=== PATIENT | female | born 1965 | race Caucasian/White ===

== ENCOUNTER 2025-06-14 22:41 | Emergency (ER) | payer OTHER, SELFPAY ==
--- NOTE | ~2025-06-14 | XR_ITS ---
CHEST RADIOGRAPH, PA AND LATERAL CLINICAL HISTORY: dizziness . COMPARISON: None available TECHNIQUE: PA and lateral views of the chest. FINDINGS The cardiomediastinal silhouette is unremarkable. The lungs are clear. IMPRESSION: No focal infiltrate or effusion. Reviewed, dictated and finalized at location A.
--- NOTE | ~2025-06-14 | CT_ITS ---
EXAMINATION: CT brain wo con DATE: 06/15/2025 00:56 INDICATION: Dizziness. Lightheadedness. TECHNIQUE: Computed tomography (CT) of the head was performed without intravenous contrast. The dose- length product was 681.00 mGy-cm. Automated exposure control and iterative reconstruction technique w ere employed. COMPARISON: None FINDINGS: Brain parenchymal volume is normal for age. No ventriculomegaly or midline shift. Basilar c isterns are patent. No acute infarction, hemorrhage, mass or mass effect. Paranasal sinuses and masto ids are pneumatized. IMPRESSION: 1. No acute intracranial abnormality. Reviewed, dictated and finalized at location A.
[2025-06-14 22:45] VITALS: BP 119/68; PULSE 59; RESP 18; TEMP 36.4; O2SAT 100
--- NOTE | 2025-06-14 23:30 | ECG_ITS ---
Test Date: 2025-06-14 23:37:43 Measurements Intervals [place] Rate: 63 P: 41 CA: 169 QRS: -16 QRSD: 80 T: 47 QT: 394 QTc: 405 Interpretive Statements SINUS RHYTHM DELAYED PRECORDIAL R/S TRANSITION LOW QRS VOLTAGE IN PRECORDIAL LEADS BASELINE ARTIFACT- I, II, AVR BORDERLINE ECG No previous ECG available for comparison Electronically Signed On 06-15-2025 06:08:16 CDT by Keegan Cordero D.O.
[2025-06-14 23:42] LABS: Hematocrit 37.8 % (37.0-47.0); Hemoglobin 12.7 g/dL (12.0-15.0); Immature Granulocyte Percent A 0.3 % (0-0.5); Lymphocytes Absolute Auto 2.70 K/mm3 (0.9-3.2); Mean Corpuscular HGB Conc 33.6 g/dl (32-36); Mean Corpuscular Hemoglobin 30.6 pg (26-34); Mean Corpuscular Volume 91.1 fl (80-100); Nucleated Red Blood Cells Absolute Auto 0.000 K/mm3 (0.0-0.012); Nucleated Red Blood Cells Perc 0.0 % (0.0-0.2); Platelet Count Result 238 k/mm3 (150-375); Red Blood Count 4.15 M/mm3 (4.2-5.4); White Blood Count 7.2 K/mm3 (4.5-10.0)
[2025-06-14 23:43] VITALS: BP 145/80; PULSE 65; RESP 16; TEMP 36.4; O2SAT 98
[2025-06-14 23:54] LABS: Alanine Aminotransferase 15 U/L (6-35); Albumin Level 4.4 g/dL (3.5-5.1); Alkaline Phosphatase 66 U/L (38-126); Anion Gap 7 mmol/L (4-12); Aspartate Amino Transferase 24 U/L (14-36); Bilirubin,Total 2.0 mg/dL (0.2-1.3); Blood Urea Nitrogen 17 mg/dL (7-17); Calcium 9.6 mg/dL (8.4-10.2); Carbon Dioxide 28 mmol/L (22-30); Chloride 103 mmol/L (98-107); Estimated CRCL calculation 67 ml/min; Estimated Glomerular Filt Rate > 60; Glucose 90 mg/dL (65-110); Potassium 3.6 mmol/L (3.4-5.0); Sodium 138 mmol/L (137-145); Total Protein 7.4 g/dL (6.3-8.2)
[2025-06-14 23:57] LABS: Add Urine Microscopic? YES; Appearance Urine Clear (Clear); Glucose Urine UA Negative (Negative); Leukocyte Esterase Ur Trace LEU/UL (Negative); Nitrate Urine Positive (Negative); Non Pathogenic Casts 0-2; Specific Grav Ur 1.011 (1.001-1.035)
[2025-06-15 00:03] LABS: Magnesium 2.1 mg/dL (1.6-2.3)
[2025-06-15 00:12] VITALS: BP 142/81; PULSE 62
[2025-06-15 00:14] VITALS: BP 127/78; PULSE 73
[2025-06-15 00:15] VITALS: BP 133/85; PULSE 79
--- OUTSIDE RECORDS SUMMARY | 2025-06-15 00:35 | XMS_ITS | Clinical Summary ---
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
--- OUTSIDE RECORDS SUMMARY | 2025-06-15 00:35 | XMS_ITS | Clinical Summary ---
Author Organization [facility] Address [address] [place] [address] Care Team Providers Care Manager Endoscopy Name Role Phone None, Provider MD Primary Care Provider Unavaila ble Allergies No known active allergies Medications naloxone (NARCAN) 4 MG/0.1ML nasal spray 1 spray by Nasal route as needed for Opioid reversal. may repeat every 2 to 3 minutes in alternating nostrils until medical assistance becomes available 1 each 4 08/08/20 25 Active HYDROcodone-acet aminophen (NORCO) 5-325 MG tabletIndication s:Acute Pain < 7 Day Supply Take 1 tablet by mouth every 6 (six) hours as needed for Pain. Indications: Acute Pain < 7 Day Supply 10 tablet 4 Active omeprazole (PRILOSEC) 20 MG capsule Take 1 capsule (20 mg total) by mouth daily. 3 Active probiotic (FLORAJEN3) Cap capsule Take 1 capsule by mouth daily with breakfast. Active docusate sodium (COLACE) 100 MG capsule Take 1 capsule (100 mg total) by mouth daily. Active Vitamin D-Vitamin K (VITAMIN K2-VITAMIN D3 OR) Take 1 tablet by mouth daily. Active [place]-3 Fatty Acids (OMEGA-3 PLUS) 1000 MG Cap Take 1 tablet by mouth 2 (two) times a day. Active Cobalamin Combinations (VITAMIN U36-VARKI ACID OR) Take 1 tablet by mouth daily. 5000/800 mcg Active NON FORMULARY Take 2,000 mg by mouth daily. Magnesium L threonate Active Active Problems Problem Noted Date Diagnosed Date Traumatic brain injury Overview (09/22/2024): fell april 2024 Family History Medical History Relation Comments Cancer Maternal Aunt Diabetes Maternal Grandmother Heart Disease Paternal Grandfather Diabetes Sister 1 Epilepsy Sister 2 Relation Status Comments Maternal Aunt Maternal Grandmother Paternal Grandfather Sister 1 Sister 2 Social History Tobacco Use Types Packs/Day Years Used Date Smoking Tobacco: Never Smokeless Tobacco: Never Alcohol Use Standard Drinks/Week Comments Yes 0 (1 standard drink = 0.6 oz pur e alcohol) social 0-4 Comments No Sex and Gender Information Value Date Recorded Sex Assigned at Not on file Legal Sex Female 5:49 PM CDT Gender Identity Not on file Sexual Orientation Not on file Last Filed Vital Signs Vital Sign Reading Time Taken Comments Blood Pressure 136/73 09/29/2024 3:57 PM PROCTOLOGIST Pulse 62 09/29/2024 3:57 PM PROCTOLOGIST Temperature 36.4 C (97.5 F) 09/29/2024 3:57 PM PROCTOLOGIST Respiratory Rate 18 09/29/2024 3:57 PM PROCTOLOGIST Oxygen Saturation 99% 09/29/2024 3:57 PM PROCTOLOGIST Inhaled Oxygen Concentration - - Weight 79.5 kg (175 lb 4.3 oz) 09/29/2024 11:00 AM PROCTOLOGIST Height 162.6 cm (5' 4) 09/29/2024 11:00 AM PROCTOLOGIST Body Mass Index 30.08 09/29/2024 11:00 AM PROCTOLOGIST Plan of Treatment Health Maintenance Due Date Last Done Comments Colorectal Cancer Screening Colonoscopy (10 Years) 1964 Annual Physical 1967 Hepatitis C 1982 Mammogram Screening 2004 Pneumococcal Vaccine: 50+ Years (1 of 1 - PCV) 2014 COVID-19 Vaccine (5 - season) 2024 01/21/2022, 05/06/2021, 05/05/2021, Additional history exists DTaP, Tdap and Td Vaccines (3 - Td or Tdap) 07/07/2029 07/07/2019, 09/29/2014, 05/24/2005, Additional history exists RSV Immunization or 60+ Years (1 - 1-dose 75+ series) 2039 Zoster Vaccines Completed 03/25/2023, 11/27/2022 Meningococcal B Vaccine Aged Out No l onger eligible based on patient's age to complete this topic Meningococcal Vaccine Aged Out No isreal elizabeth eligible based on patient's age to complete this topic RSV Immunizations Under 20 Months Aged Out No longer eligible based on patient's age to complete this topic Medical Devices Implanted Type Area Filbert Grower Device Identifier Shelf Expiration Date Model / Serial / Lot Viaflow Placental Tissure Matirx Implanted:Qty: 1 on 09/29/2024 by Darrel Bonilla DPM at [facility] Tissue Bilateral : [employer] 04/17/2029 [id number] / [id number] / Insurance [facility] Care Teams Manager Endoscopy Relationship Specialty Start Date End Date None, Provider, PCP - General 03/10/21
--- OUTSIDE RECORDS SUMMARY | 2025-06-15 00:35 | XMS_ITS | Encounter Summary ---
Author Organization [facility] Health Address [address] [place] [address] Care Team Providers Care Grey Roll Worker Name Role Phone Unavailable Primary Care Provider Unavailabl e Prior Encounters Date Type Department Care Team Description 11/23/2019 Converted CPS Chart Documents [facility] [address] [place] [phone] <No scans attached> 11/23/2019 Converted 13x Documents [facility] [address] [place] [phone] <No scans attached> Plan of Treatment Not on file Procedures Procedure Name Priority Date/Time Associated Diagnosis Comments ADJUST PARTIAL DENTURE - MANDIBULAR Routine 05/03/2021 2:00 AM CDT NC X-RAY Routine 05/03/2021 2:00 AM CDT ADJUST PARTIAL DENTURE - MANDIBULAR Routine 04/24/2021 2:00 AM CDT OFFICE VISIT FOR OBSERVATION (DURING REGULARLY SCHEDULED HOURS) - NO OTHER SERVICES PERFORMED Routine 04/24/2021 2:00 AM CDT ADJUST PARTIAL DENTURE - MANDIBULAR Routine 04/17/2021 2:00 AM CDT ADJUST PARTIAL DENTURE - MAXILLARY Routine 04/17/2021 2:00 AM CDT ADJUST PARTIAL DENTURE - MANDIBULAR Routine 02/27/2021 2:00 AM CDT ADJUST PARTIAL DENTURE - MANDIBULAR Routine 01/16/2021 2:00 AM CDT CANCELLED APPOINTMENT Routine 12/11/2020 2:00 AM LITIGATION ATTORNEY ASSOCIATE 18,19,30 PLD METAL/RESIN PREMIUM Routine 11/21/2020 2:00 AM LITIGATION ATTORNEY ASSOCIATE 3,12,14,15 PUD METAL/RESIN PREMIUM Routine 11/21/2020 2:00 AM LITIGATION ATTORNEY ASSOCIATE 18,19,30 PLD METAL/RESIN PREMIUM Routine 11/21/2020 2:00 AM LITIGATION ATTORNEY ASSOCIATE 3,12,14,15 PUD METAL/RESIN PREMIUM Routine 11/21/2020 2:00 AM LITIGATION ATTORNEY ASSOCIATE 32 EXTRACTION, ERUPTED TOOTH OR EXPOSED ROOT (ELEVATION AND/OR FORCEPS REMOVAL) Routine 11/21/2020 2:00 AM LITIGATION ATTORNEY ASSOCIATE 30 EXTRACTION, ERUPTED TOOTH OR EXPOSED ROOT (ELEVATION AND/OR FORCEPS REMOVAL) Routine 11/21/2020 2:00 AM LITIGATION ATTORNEY ASSOCIATE 19 EXTRACTION, ERUPTED TOOTH OR EXPOSED ROOT (ELEVATION AND/OR FORCEPS REMOVAL) Routine 11/21/2020 2:00 AM LITIGATION ATTORNEY ASSOCIATE 18 EXTRACTION, ERUPTED TOOTH OR EXPOSED ROOT (ELEVATION AND/OR FORCEPS REMOVAL) Routine 11/21/2020 2:00 AM LITIGATION ATTORNEY ASSOCIATE 17 EXTRACTION, ERUPTED TOOTH OR EXPOSED ROOT (ELEVATION AND/OR FORCEPS REMOVAL) Routine 11/21/2020 2:00 AM LITIGATION ATTORNEY ASSOCIATE 16 EXTRACTION, ERUPTED TOOTH OR EXPOSED ROOT (ELEVATION AND/OR FORCEPS REMOVAL) Routine 11/21/2020 2:00 AM LITIGATION ATTORNEY ASSOCIATE 15 EXTRACTION, ERUPTED TOOTH OR EXPOSED ROOT (ELEVATION AND/OR FORCEPS REMOVAL) Routine 11/21/2020 2:00 AM LITIGATION ATTORNEY ASSOCIATE 14 EXTRACTION, ERUPTED TOOTH OR EXPOSED ROOT (ELEVATION AND/OR FORCEPS REMOVAL) Routine 11/21/2020 2:00 AM LITIGATION ATTORNEY ASSOCIATE 12 EXTRACTION, ERUPTED TOOTH OR EXPOSED ROOT (ELEVATION AND/OR FORCEPS REMOVAL) Routine 11/21/2020 2:00 AM LITIGATION ATTORNEY ASSOCIATE 3 EXTRACTION, ERUPTED TOOTH OR EXPOSED ROOT (ELEVATION AND/OR FORCEPS REMOVAL) Routine 11/21/2020 2:00 AM LITIGATION ATTORNEY ASSOCIATE 1 EXTRACTION, ERUPTED TOOTH OR EXPOSED ROOT (ELEVATION AND/OR FORCEPS REMOVAL) Routine 11/21/2020 2:00 AM LITIGATION ATTORNEY ASSOCIATE 31 EXTRACTION, ERUPTED TOOTH OR EXPOSED ROOT (ELEVATION AND/OR FORCEPS REMOVAL) Routine 11/21/2020 2:00 AM LITIGATION ATTORNEY ASSOCIATE 5 EXTRACTION, ERUPTED TOOTH OR EXPOSED ROOT (ELEVATION AND/OR FORCEPS REMOVAL) Routine 11/21/2020 2:00 AM LITIGATION ATTORNEY ASSOCIATE COMPREHENSIVE ORAL EVALUATION - NEW OR ESTABLISHED PATIENT Routine 11/21/2020 2:00 AM LITIGATION ATTORNEY ASSOCIATE [place] CT CAPTURE AND INTERPRETATION WITH FIELD OF VIEW OF BOTH JAWS; WITH OR WITHOUT CRANIUM Routine 11/21/2020 2:00 AM LITIGATION ATTORNEY ASSOCIATE BITEWINGS - TWO RADIOGRAPHIC IMAGES Routine 11/21/2020 2:00 AM LITIGATION ATTORNEY ASSOCIATE SINGLE X-RAY Routine 11/21/2020 2:00 AM LITIGATION ATTORNEY ASSOCIATE Visit Diagnoses Not on file
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
--- OUTSIDE RECORDS SUMMARY | 2025-06-15 00:35 | XMS_ITS | Clinical Summary ---
Author Organization [facility] Address [address] [place] [address] Care Team Providers Care Software Tester Name Role Phone Delta Damon MD Primary Care Provider Source Comments [facility],non-owned Affiliates and Associated Physician Practices is amultiple site organization consisting of ambulatory clinics and hospital sitesin [place], [place], [place] and [place]. This disclosure is being madepursuant to the Care Everywhere program and may not contain all information available regarding this patient. Last updated 18.[facility] Allergies No known active allergies Medications * Be aware that medications may not be up to date on this document. Alwaysverify current medications with the patient. metroNIDAZOLE vaginal (VANDAZOLE) 0.75 % vaginal gel 05/18/2019 Active Active Problems No known active problems Social History Tobacco Use Types Packs/Day Years Used Date Smoking Tobacco: Never Smokeless Tobacco: Never Comments No Sex and Gender Information Value Date Recorded Sex Assigned at Not on file Legal Sex Female 9:35 AM CDT Gender Identity Female 04/13/2019 3:11 PM CDT Sexual Orientation Not on file Last Filed Vital Signs Vital Sign Reading Time Taken Comments Blood Pressure 133/69 05/28/2019 4:09 PM CDT Pulse 91 05/28/2019 4:09 PM CDT Temperature 37.2 C (98.9 F) 05/28/2019 4:09 PM CDT Respiratory Rate 16 05/28/2019 4:09 PM CDT Oxygen Saturation 100% 05/28/2019 4:09 PM CDT Inhaled Oxygen Concentration - - Weight 77.1 kg (170 lb) 05/28/2019 4:09 PM CDT Height 162.6 cm (5' 4) 05/28/2019 4:09 PM CDT Body Mass Index 29.18 05/28/2019 4:09 PM CDT Plan of Treatment Health Maintenance Due Date Last Done Comments COLOGUARD (AGES 45-75) - COL ON CA SCREENING 1964 COLON MONITORING 1964 COLONOSCOPY - COLON CA SCREENING 1964 CT COLONOGRAPHY - COLON CA SCREENING 1964 Colorectal Cancer Screening 1964 FIT - COLON CA SCREENING 1964 FLEX SIG - COLON CA SCREENING 1964 LIPID TESTING 1964 MAMMOGRAM 1964 HIV SCREENING 1979 HEPATITIS C SCREENING 07/14/1982 DTAP/TDAP/TD VACCINES (1 - Tdap) 1983 PAP SMEAR 1985 PNEUMOCOCCAL VACCINE 50+ (1 of 1 - PCV) 2014 ZOSTER VACCINE (1 of 2) 2014 COVID-19 VACCINE (3 - 2023-2 5 season) 2024 05/06/2021, 04/15/2021 DEPRESSION SCREENING 11/04/2024 INFLUENZA VACCINE (#1) 2025 Respiratory Syncytial Virus (RSV) Vaccine Pt: or over 60 yrs (1 - 1-dose 75+ series) 2039 HEPATITIS B VACCINE Aged Out No longe r eligible based on patient's age to complete this topic HIB VACCINE Aged Out No longer eligi ble based on patient's age to complete this topic HPV VACCINE Aged Out No longer eligi ble based on patient's age to complete this topic MENINGOCOCCAL (Group B) VACCINE SHARED DECISION-MAKING Aged Out No longer eligible based on patient's age to complete this topic MENINGOCOCCAL GROUPS A/C/Y/W VACCINE Aged Out No longer eligible b ased on patient's age to complete this topic Insurance Care Teams Software Tester Relationship Specialty Start Date End Date Delta Damon MD [address] [place] [phone] PCP - General 10/06/19
[2025-06-15 00:41] VITALS: BP 124/69; PULSE 62; RESP 16; O2SAT 100
[2025-06-15] MEDS: SODIUM CHLORIDE 0.9% IV 1,000 ML 999 ML IV CONT (00:41)
[2025-06-15] MEDS: MECLIZINE HCL 25 MG TABLET PO (01:03)
--- NOTE | 2025-06-15 02:00 | ED.DIZZY ---
HPI - Dizziness General Chief Complaint: Dizziness Stated Complaint: Dizziness Time Seen by Provider: 06/14/25 23:42 Source: patient Mode of arrival: ambulatory Limitations: no limitations History of Present Illness HPI Narrative: Patient is a 59-year-old female who presents the ED with report of dizziness/lightheadedness. Patient reports she has been having intermittent dizziness/lightheadedness since last Saturday. Reports it is worse with certain movements, tilting head upright, bending over, looking left to right, standing upright. She saw her PCP for this last week and was told she was dehydrated and orthostatic. She has been trying to drink plenty of fluids over the weekend, but denied improvement. Denies syncope, LOC. Denies focal weakness or numbness, headache, vision changes, chest pain, difficulty breathing, nausea, vomiting, slurred speech, confusion. Related Data Allergies Allergy/AdvReac Type Severity Reaction Status Date / Time No Known Allergies Allergy Verified 06/14/25 22:42 Review of Systems Review of Systems: All systems reviewed & are unremarkable except as noted in HPI. All systems reviewed & are unremarkable except as noted in HPI and below Exam Narrative: GENERAL: Well appearing, well-nourished, non-toxic, in no acute distress. HEAD: Normocephalic, atraumatic. EYES: PERRL/EOMI, conjunctivae clear bilaterally. No nystagmus. NECK: Supple. No meningeal signs. RESPIRATORY: Airway patent, respirations nonlabored. Clear to auscultation bilaterally, no rales, rhonchi, wheezing. CARDIOVASCULAR: Regular rate and rhythm without murmurs, rubs, or gallops. Peripheral pulses 2+ and equal bilaterally. MUSCULOSKELETAL: Moves all extremities. No gross deformities. SKIN: Warm, dry, normal color. No rashes. NEURO: A&O X3. Speech clear. Follows commands. CN II-XII grossly intact. Sensation grossly intact. Steady gait. No ataxic movements. Strength 5/5 in upper and lower extremities bilaterally. No pronator drift. Equal grocery store manager strength bilaterally. PSYCHIATRIC: Appropriate mood and affect. Normal interaction. Course Vital Signs Vital signs: Vital Signs Temperature 97.6 F 06/14/25 22:45 Pulse Rate 59 L 06/14/25 22:45 Respiratory Rate 18 06/14/25 22:45 Blood Pressure 119/68 06/14/25 22:45 Pulse Oximetry 100 06/14/25 22:45 Oxygen Delivery Room Air 06/14/25 22:45 Temperature 97.8 F 06/15/25 02:33 Pulse Rate 73 06/15/25 02:33 Respiratory Rate 18 06/15/25 02:33 Blood Pressure 132/72 06/15/25 02:33 Pulse Oximetry 99 06/15/25 02:33 Oxygen Delivery Room Air 06/14/25 22:45 MDM - Dizziness MDM Narrative Medical decision making narrative: Patient presented to ED with several day history of intermittent dizziness/lightheadedness, worse with certain positions. Vital signs are stable upon arrival. Patient was slightly orthostatic with drop in blood pressure. Fluids were initiated. She is neurologically intact. No focal deficits appreciated on exam. There is no diplopia, dysarthria, or dysphagia. Otherwise normal neurologic examinations. CT brain was without acute findings. Symptoms have been ongoing for several days. Would expect to see changes on CT imaging if this were neurologic in nature. EKG with sinus rhythm, no concerning ST changes or arrhythmia. Laboratory studies without leukocytosis or anemia. Stable electrolytes. Normal magnesium. UA with positive nitrates, but no wbc's seen. Sent for culture. Patient denies urinary complaints. Chest x-ray is clear. Patient given fluids and meclizine in the ED. On re-evaluation she does report that symptoms have improved. She has been ambulatory to and from the bathroom several times without issue. Gait is stable and there are no cerebral or cerebellar deficits on exam. Remains neurologically intact. Feel symptoms most likely related to BPPV, peripheral dizziness. Feel patient is safe for discharge home with supportive therapy. Risk factors for central causes of vertigo and reasons to return to the ED reviewed, including persistent symptoms, focal weakness, slurred speech, confusion, or vision changes. Patient felt to be a reasonable candidate for continued outpatient management and risks are felt to outweigh benefits for further imaging studies at this time. Advised patient to stay well hydrated. Recommended close follow-up with PCP for continued evaluation. Given strict return precautions. She agrees with plan, feels comfortable going home. Discharged in stable condition. Medical Records Attestation: I reviewed the patient's medical records. Lab Data Attestation: I reviewed the patient's lab results. 06/14/25 23:36 06/14/25 23:36 Labs: Lab Results 06/14/25 06/14/25 Range/Units 23:36 23:46 WBC 7.2 (4.5-10.0) K/mm3 RBC 4.15 L (4.2-5.4) M/mm3 Hgb 12.7 (12.0-15.0) g/dL Hct 37.8 (37.0-47.0) % MCV 91.1 (80-100) fl MCH 30.6 (26-34) pg MCHC 33.6 (32-36) g/dl RDW 12.6 (11.5-14.5) % Plt Count 238 (150-375) k/mm3 MPV 10.3 (7.4-10.4) fl Immature Gran % (Auto) 0.3 (0-0.5) % Neut % (Auto) 50.2 (45.5-73.1) % Lymph % (Auto) 37.4 (18.3-44.2) % [place] % (Auto) 9.3 H (2.6-8.5) % Eos % (Auto) 2.4 (0-4.4) % Baso % (Auto) 0.4 (0.2-1.2) % Lymph # (Auto) 2.70 (0.9-3.2) K/mm3 [place] # (Auto) 0.7 H (0.1-0.6) K/mm3 Eos # (Auto) 0.2 (0-0.3) K/mm3 Baso # (Auto) 0.0 (0.0-0.1) K/mm3 Abs Immat Gran (auto) 0.02 (0.00-0.031) K/mm3 Absolute Neuts (auto) 3.6 (1.3-6.7) K/mm3 Absolute Nucleated RBC 0.000 (0.0-0.012) K/mm3 Nucleated RBC % 0.0 (0.0-0.2) % Sodium 138 (137-145) mmol/L Potassium 3.6 (3.4-5.0) mmol/L Chloride 103 (98-107) mmol/L Carbon Dioxide 28 (22-30) mmol/L Anion Gap 7 (4-12) mmol/L BUN 17 (7-17) mg/dL Creatinine 0.77 (0.7-1.0) mg/dL Estim Creat Clear Calc 67 ml/min Estimated GFR > 60 (59 - ) Glucose 90 (65-110) mg/dL Calcium 9.6 (8.4-10.2) mg/dL Magnesium 2.1 (1.6-2.3) mg/dL Total Bilirubin 2.0 H (0.2-1.3) mg/dL AST 24 (14-36) U/L ALT 15 (6-35) U/L Alkaline Phosphatase 66 (38-126) U/L Total Protein 7.4 (6.3-8.2) g/dL Albumin 4.4 (3.5-5.1) g/dL Urine Color Yellow (Yellow) Urine Appearance Clear (Clear) Urine pH 5.5 (5.0-9.0) Ur Specific [place] 1.011 (1.001-1.035) Urine Protein Negative (Negative) mg/dL Urine Glucose (UA) Negative (Negative) mg/dL Urine Ketones Negative (Negative) mg/dL Ur Blood (Man) Negative (Negative) Urine Nitrate Positive H (Negative) Urine Bilirubin Negative (Negative) Urine Urobilinogen 0.2 (<2.0) mg/dL Leukocyte Esterase Rfl Trace H (Negative) JOSE/UL Urine RBC 0-2 (0-2) /hpf Urine WBC 0-5 (0-3) /hpf Ur Squamous Epith Cells None seen (Few) /hpf Urine Bacteria 4+ H /hpf Urine Casts 0-2 Imaging Data Attestation: I personally reviewed and interpreted this imaging study as follows: Radiologist's impression: ITS Impressions Chest X-Ray 06/15/25 00:24 IMPRESSION: No focal infiltrate or effusion. STAT RAD CT brain: No acute intracranial hemorrhage. No midline shift or mass effect. The territory herman-white matter differentiation is maintained throughout. The ventricles and sulci are commensurate with age. Discharge Plan Discharge Clinical Impression: Dizziness, Positional lightheadedness, Orthostatic hypotension Patient Disposition: Home Condition: Stable Instructions: Antibiotic Form, Benign Paroxysmal Positional Vertigo (ED), Lightheadedness (ED), Dizziness (ED) Additional Instructions: Utilize meclizine, Valium, scopolamine patch as needed for vertigo. Use caution with Valium. Recommend taking this at night as it may cause sedation. Do not drive, operate heavy machinery, drink alcohol while on valium as this may cause further sedation. Stay well hydrated. Follow-up closely with your primary care doctor for further evaluation. Return to ED for worsening or severe dizziness/lightheadedness, passing out, unable to keep down food or drink, chest pain, difficulty breathing, numbness or weakness of arm or leg, vision changes, severe headache, or any other symptoms of concern. Patient Language: Lithuanian Prescriptions: New meclizine 25 mg tablet 25 mg PO TID PRN (Reason: diziness) Qty: 15 0RF diazepam [Valium] 2 mg tablet 2 mg PO HS PRN (Reason: dizziness or vertigo) Qty: 5 0RF scopolamine base 1 mg over 3 days patch 3 day 1 patch transdermal Q3D PRN (Reason: dizziness or vertigo) Qty: 4 0RF Follow-up/Referrals: UNKNOWN,DOCTOR [Primary Care Provider] - Time of Disposition: 02:20
[2025-06-15 02:33] VITALS: BP 132/72; PULSE 73; RESP 18; TEMP 36.6; O2SAT 99
== END 2025-06-15 02:36 | disposition home or self-care (01) ==
PROVIDERS: Student in an Organized Health Care Education/Training Program; Emergency Provider Physician Assistant
DX: I95.1 Orthostatic hypotension (principal); R42 Dizziness and giddiness; R82.998 Other abnormal findings in urine
CPT/HCPCS: 36415; 70450; 71046; 80053; 81001; 83735; 85025; 87086; 93005; 96360; 99284; A9270; J7030

== ENCOUNTER 2025-07-22 18:36 | Emergency (ER) | payer OTHER, SELFPAY ==
--- NOTE | ~2025-07-22 | CT_ITS ---
CT HEAD NON-CONTRAST Clinical History: dizziness Comparison: 06/15/2025 Technique: Unenhanced axial images skull base to vertex Coronal, sagittal reformats CT images acquired with automatic exposure control for dose reduction DLP: 681 mGy-cm Findings: Sulci, ventricles: Unremarkable. No intracerebral hemorrhage. No evidence acute territorial infarct. No mass effect, midline shift. Bony calvarium intact. Visualized paranasal sinuses: Clear. Mastoid air cells: Clear. IMPRESSION: 1. No acute intracranial findings. Reviewed, dictated and finalized at location R.
[2025-07-22 18:38] VITALS: BP 133/81; PULSE 83; RESP 18; TEMP 36.7; O2SAT 99
--- OUTSIDE RECORDS SUMMARY | 2025-07-22 18:38 | XMS_ITS | Clinical Summary ---
Author Organization [facility] Address [address] [place] [address] Care Team Providers Care Cloth Printer Name Role Phone JanetDiaz [facility] Primary Care Provider [phone] Allergies No known active allergies Medications esomeprazole [...] (01/14/2023): Added automatically from request for surgery [id number] Tear of right rotator cuff 09/23/2019 Overview (09/23/2019): Added automatically from request for surgery [id number] Vaginal atrophy 06/26/2019 Incomplete defecation 06/08/2019 Pelvic floor dysfunction in female 06/08/2019 Urinary incontinence 06/08/2019 Overview (06/08/2019): Added automatically from request for surgery [id number] Arthralgia of shoulder 07/20/2015 Resolved Problems Problem Noted Date Diagnosed Date Resolved Date Postoperative state 08/05/2019 02/19/20 23 Prolapse of vaginal vault after hysterectomy 9 02/18/2023 Cystocele, midline 06/08/2019 3 Encounters Date Type Department Care Team Description 04/30/2025 1:45 PM CDT Office Visit [facility] Medicine Orthopaedic Surgery [address] [place] [address] Medical Office Building [address] [place] [phone] Aracely Subramanian NP Aftercare following left hip joint replacement surgery (Primary Dx); Left hip pain; Greater trochanteric bursitis of left hip 04/30/2025 1:22 PM CDT - 04/30/2025 11:59 PM CDT Hospital Encounter [id number] [address] [place] [address] [address] [place] [id number] Aftercare following left hip joint replacement surgery [...] Grandmother Cancer Mother Diabetes Mother 50s y, [place] Paternal Grandfather Heart attack Paternal Grandfather Seizures [...] on file Legal Sex Female 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 Gender Identity Not on file Sexual Orientation Not on file 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 Not on file Not [...] of 2) 2014 Covid-19 Vaccine (3 - 2024-2 6 season) 2025 05/06/2021, 04/15/2021 Influenza Vaccine (#1) 2025 DTaP/Tdap/Td Vaccine (2 - Td or Tdap) 07/07/2029 07/07/2019 Pneumococcal vaccine <65 Aged Out No longer eligible based on patient's age to complete this topic Medical Devices Implanted Type Area Outside Plant Technician Device Identifier Shelf Expiration Date Model / Serial / Lot Key Cybersecurity [id number] Upsylon 35.4cm Elongation Profile Lightweight Large Pore Low - Sna - [id number] Implanted:Qty: 1 on 07/22/2019 by Scott Evans MD at [facility] Mesh N/A: Pelvis Crane [employer]ormix Sam 05/03/2022 [id number] / NA / [id number] [employer] Insert Trident 0deg 36mm 723-00-36d - [id number] Implanted:Qty: 1 on 02/07/2023 by Morgan Vaughn MD at [facility] Left: Hip [employer] [id number] 12/16/2027 723-00-36 D / / [id number] Description:Implant pause pe rformed [employer] Shell Acetabular Trident Ii Tritanium D Od50mm Hip 9 Hole Sterile 709-04-50d - [id number] Implanted:Qty: 1 on 02/07/2023 by Morgan Vaughn MD at [facility] Left: Hip [employer] [id number] 01/01/2028 709-04-50 D / / [id number] Description:Implant pause pe rformed [employer] Screw Bone Trident Ii L25mm Od6.5mm Low Profile Hexagonal Sterile 5886-8659 - [id number] Implanted:Qty: 1 on 02/07/2023 by Morgan Vaughn MD at [facility] Left: Hip [employer] [id number] 12/26/2027 2044-4681 / / UACA Description:Implant pause pe rformed [employer] Screw Bone Trident Ii L25mm Od6.5mm Low Profile Hexagonal Sterile 5162-7643 - [id number] Implanted:Qty: 1 on 02/07/2023 by Morgan Vaughn MD at [facility] Left: Hip [employer] [id number] 12/26/2027 2904-4071 / / UACA Description:Implant pause pe rformed [employer] Stem Insignia Hip Size 4 Standard 1537-8987 - [id number] Implanted:Qty: 1 on 02/07/2023 by Morgan Vaughn MD at [facility] Left: Hip [employer] [id number] 05/15/2027 6026-3135 / / [id number] Description:Implant pause pe rformed [employer] V40 36mm Anatomic Hip -2.5mm Offset Taper Head Femoral Biolox 6570-0-436 - [id number] Implanted:Qty: 1 on 02/07/2023 by Morgan Vaughn MD at [facility] Left: Hip [employer] [id number] 06/12/2027 6570-0-43 [id number] Description:Implant pause pe rformed Procedures Procedure Name Priority Date/Time Associated Diagnosis Comments GA ARTHROCENTESIS ASPIR&/INJ MAJOR JT/BURSA W/O US Routine 04/30/2025 1:45 PM CDT Greater trochanteric bursitis of left hip XR HIP LEFT W PELVIS 2 OR 3 VIEWS Schedule Routine, Read Routine (OP Routine) 04/30/2025 1:36 PM CDT Aftercare following left hip joint replacement surgery from Last 3 Months Results * GA ARTHROCENTESIS ASPIR&/INJ MAJOR JT/BURSA W/O US (04/30/2025 [...] R esult from Last 3 Months Insurance [facility] Advance Directives For more information, please contact: [phone] * Full Code (Latest Code Status on File) Date Activated Date Inactivated Comments 02/07/2023 10:23 AM 02/08/2023 2:44 PM * Full Code Date Activated Date Inactivated Comments 07/22/2019 8:32 PM 07/23/2019 6:44 PM Care Teams Cloth Printer Relationship Specialty Start Date End Date [facility] [address] [place] [address] PCP - General 06/25/24
--- OUTSIDE RECORDS SUMMARY | 2025-07-22 18:38 | XMS_ITS | Clinical Summary ---
Author Organization [facility] Address [address] [place] [address] Care Team Providers Care Stove Mounter Name Role Phone None, Provider MD Primary [...] Take 1 tablet by mouth daily. Active [place]-3 Fatty Acids (OMEGA-3 PLUS) 1000 MG Cap Take 1 tablet by mouth 2 (two) times a day. Active Cobalamin Combinations (VITAMIN B00-FWDFR ACID OR) Take 1 tablet by mouth [...] Comments Blood Pressure 136/73 09/29/2024 3:57 PM MANUFACTURING ENGINEER MACHINING Pulse 62 09/29/2024 3:57 PM MANUFACTURING ENGINEER MACHINING Temperature 36.4 C (97.5 F) 09/29/2024 3:57 PM MANUFACTURING ENGINEER MACHINING Respiratory Rate 18 09/29/2024 3:57 PM MANUFACTURING ENGINEER MACHINING Oxygen Saturation 99% 09/29/2024 3:57 PM MANUFACTURING ENGINEER MACHINING Inhaled Oxygen Concentration - - Weight 79.5 kg (175 lb 4.3 oz) 09/29/2024 11:00 AM MANUFACTURING ENGINEER MACHINING Height 162.6 cm (5' 4) 09/29/2024 11:00 AM MANUFACTURING ENGINEER MACHINING Body Mass Index 30.08 09/29/2024 11:00 AM MANUFACTURING ENGINEER MACHINING Plan of Treatment Health Maintenance Due Date Last Done Comments Colorectal Cancer Screening Colonoscopy (10 Years) 1964 Annual Physical 1967 Hepatitis C 1982 Mammogram Screening 2004 Pneumococcal Vaccine: 50+ Years (1 of 1 - PCV) 2014 COVID-19 Vaccine (5 - 2024- season) 2025 01/21/2022, 05/06/2021, 05/05/2021, Additional history exists DTaP, [...] this topic Medical Devices Implanted Type Area Manufacturers Service Representative Device Identifier Shelf Expiration Date Model / Serial / Lot Viaflow Placental Tissure Matirx Implanted:Qty: 1 on 09/29/2024 by Darrel Bonilla DPM at [facility] Tissue Bilateral : Toe Evi 04/17/2029 [id number] / [id number] / Insurance [facility] Care Teams Stove Mounter Relationship Specialty Start Date End Date None, Provider, PCP - General 03/10/21
--- OUTSIDE RECORDS SUMMARY | 2025-07-22 18:38 | XMS_ITS | Clinical Summary ---
Author Organization [facility] Health Address [address] [place] [address] Care Team Providers Care Clam Bed Laborer Name Role Phone Unavailable Primary Care Provider [...]
--- OUTSIDE RECORDS SUMMARY | 2025-07-22 18:38 | XMS_ITS | Clinical Summary ---
Author Organization [facility] Address [address] [place] [address] Care Team Providers Care Type Photography Supervisor Name Role Phone Delta Damon MD Primary Care Provider [phone] Source Comments [facility],non-owned Affiliates and Associated Physician Practices is amultiple site organization consisting of ambulatory clinics and hospital sitesin [place], [place] and [place]. This disclosure is being madepursuant to the Care Everywhere program and may not contain all information available regarding this patient. Last updated 18.[facility] Allergies No known active allergies Medications * [...] 07/14/1982 DTAP/TDAP/TD VACCINES (1 - Tdap) 1983 PNEUMOCOCCAL VACCINE 50+ (1 of 1 - PCV) 2014 ZOSTER VACCINE (1 of 2) 2014 DEPRESSION SCREENING 11/04/2024 COVID-19 VACCINE (3 - 2024-2 6 season) 2025 05/06/2021, 04/15/2021 INFLUENZA VACCINE (#1) 2025 Respiratory Syncytial Virus [...] to complete this topic Insurance Care Teams Type Photography Supervisor Relationship Specialty Start Date End Date Delta Damon MD [address] [place] [id number] PCP - General 10/06/19
--- OUTSIDE RECORDS SUMMARY | 2025-07-22 18:38 | XMS_ITS | Encounter Summary ---
Author Organization [facility] Health Address [address] [place] [address] Care Team Providers Care Metal Control Worker Name Role Phone Unavailable Primary Care Provider Unavailabl e Prior Encounters Date Type Department Care Team Description 11/23/2019 Converted CPS Chart Documents [facility] [address] [place] [phone] <No scans attached> 11/23/2019 Converted 13x Documents [facility] [address] [place] [phone] <No scans attached> Plan of Treatment Not [...] CDT CANCELLED APPOINTMENT Routine 12/11/2020 2:00 AM HEAD OF DIGITAL ADVERTISING & INTEGRATION 18,19,30 PLD METAL/RESIN PREMIUM Routine 11/21/2020 2:00 AM HEAD OF DIGITAL ADVERTISING & INTEGRATION 3,12,14,15 PUD METAL/RESIN PREMIUM Routine 11/21/2020 2:00 AM HEAD OF DIGITAL ADVERTISING & INTEGRATION 18,19,30 PLD METAL/RESIN PREMIUM Routine 11/21/2020 2:00 AM HEAD OF DIGITAL ADVERTISING & INTEGRATION 3,12,14,15 PUD METAL/RESIN PREMIUM Routine 11/21/2020 2:00 AM HEAD OF DIGITAL ADVERTISING & INTEGRATION 32 EXTRACTION, ERUPTED TOOTH OR EXPOSED ROOT (ELEVATION AND/OR FORCEPS REMOVAL) Routine 11/21/2020 2:00 AM HEAD OF DIGITAL ADVERTISING & INTEGRATION 30 EXTRACTION, ERUPTED TOOTH OR EXPOSED ROOT (ELEVATION AND/OR FORCEPS REMOVAL) Routine 11/21/2020 2:00 AM HEAD OF DIGITAL ADVERTISING & INTEGRATION 19 EXTRACTION, ERUPTED TOOTH OR EXPOSED ROOT (ELEVATION AND/OR FORCEPS REMOVAL) Routine 11/21/2020 2:00 AM HEAD OF DIGITAL ADVERTISING & INTEGRATION 18 EXTRACTION, ERUPTED TOOTH OR EXPOSED ROOT (ELEVATION AND/OR FORCEPS REMOVAL) Routine 11/21/2020 2:00 AM HEAD OF DIGITAL ADVERTISING & INTEGRATION 17 EXTRACTION, ERUPTED TOOTH OR EXPOSED ROOT (ELEVATION AND/OR FORCEPS REMOVAL) Routine 11/21/2020 2:00 AM HEAD OF DIGITAL ADVERTISING & INTEGRATION 16 EXTRACTION, ERUPTED TOOTH OR EXPOSED ROOT (ELEVATION AND/OR FORCEPS REMOVAL) Routine 11/21/2020 2:00 AM HEAD OF DIGITAL ADVERTISING & INTEGRATION 15 EXTRACTION, ERUPTED TOOTH OR EXPOSED ROOT (ELEVATION AND/OR FORCEPS REMOVAL) Routine 11/21/2020 2:00 AM HEAD OF DIGITAL ADVERTISING & INTEGRATION 14 EXTRACTION, ERUPTED TOOTH OR EXPOSED ROOT (ELEVATION AND/OR FORCEPS REMOVAL) Routine 11/21/2020 2:00 AM HEAD OF DIGITAL ADVERTISING & INTEGRATION 12 EXTRACTION, ERUPTED TOOTH OR EXPOSED ROOT (ELEVATION AND/OR FORCEPS REMOVAL) Routine 11/21/2020 2:00 AM HEAD OF DIGITAL ADVERTISING & INTEGRATION 3 EXTRACTION, ERUPTED TOOTH OR EXPOSED ROOT (ELEVATION AND/OR FORCEPS REMOVAL) Routine 11/21/2020 2:00 AM HEAD OF DIGITAL ADVERTISING & INTEGRATION 1 EXTRACTION, ERUPTED TOOTH OR EXPOSED ROOT (ELEVATION AND/OR FORCEPS REMOVAL) Routine 11/21/2020 2:00 AM HEAD OF DIGITAL ADVERTISING & INTEGRATION 31 EXTRACTION, ERUPTED TOOTH OR EXPOSED ROOT (ELEVATION AND/OR FORCEPS REMOVAL) Routine 11/21/2020 2:00 AM HEAD OF DIGITAL ADVERTISING & INTEGRATION 5 EXTRACTION, ERUPTED TOOTH OR EXPOSED ROOT (ELEVATION AND/OR FORCEPS REMOVAL) Routine 11/21/2020 2:00 AM HEAD OF DIGITAL ADVERTISING & INTEGRATION COMPREHENSIVE ORAL EVALUATION - NEW OR ESTABLISHED PATIENT Routine 11/21/2020 2:00 AM HEAD OF DIGITAL ADVERTISING & INTEGRATION [facility] CT CAPTURE AND INTERPRETATION WITH FIELD OF VIEW OF BOTH JAWS; WITH OR WITHOUT CRANIUM Routine 11/21/2020 2:00 AM HEAD OF DIGITAL ADVERTISING & INTEGRATION BITEWINGS - TWO RADIOGRAPHIC IMAGES Routine 11/21/2020 2:00 AM HEAD OF DIGITAL ADVERTISING & INTEGRATION SINGLE X-RAY Routine 11/21/2020 2:00 AM HEAD OF DIGITAL ADVERTISING & INTEGRATION Visit Diagnoses Not on file
--- NOTE | 2025-07-22 18:59 | ED.DIZZY ---
HPI - Dizziness General Chief Complaint: Dizziness <Shivani Cadet APRN - Last Filed: 07/22/25 19:02> Stated Complaint: light headed, nausea, vertigo <Shivani Cadet APRN - Last Filed: 07/22/25 19:02> Time Seen by Provider: 07/22/25 19:00 <Shivani Cadet APRN - Last Filed: 07/22/25 19:02> Focused HPI: Patient is a 60-year-old female who presents to the ER with vertigo. She reports she was diagnosed approximately 1 month ago and her symptoms have improved but today they have worsened again. Patient endorses significant dizziness when she opens her eyes or moves positions. She also endorses nausea and vomiting. Patient denies any numbness and tingling in her extremities, recent fevers, ear pain, or congestion. GENERAL: Ill-appearing, well-nourished, and in mild distress d/t vertigo. HEAD: Normocephalic, atraumatic. CHEST: Clear to auscultation. ?No respiratory distress. HEART: Regular rate and rhythm.? NEURO: ?Alert and oriented x3. Patient screened in triage and initial orders placed.? ?Additional care and disposition to be based upon?diagnostic testing and treatment. <Shivani Cadet APRN - Last Filed: 07/22/25 19:02> Source: patient <Greyson Breen MD - Last Filed: 07/22/25 21:36> Mode of arrival: ambulatory <Greyson Breen MD - Last Filed: 07/22/25 21:36> Limitations: no limitations <Greyson Breen MD - Last Filed: 07/22/25 21:36> History of Present Illness HPI Narrative: 60-year-old with a history vertigo presents to the ER with the complaints of having dizziness, room spinning associated with nausea and vomiting since this morning patient states with her previous episodes of vertigo she always felt the room was spinning but never threw up. She denies having any headache or weakness. <Greyson Breen MD - Last Filed: 07/22/25 21:36> MD elicited complaint: vertigo and disequilibrium <Greyson Breen MD - Last Filed: 07/22/25 21:36> Pertinent past history: BPPV <Greyson Breen MD - Last Filed: 07/22/25 21:36> Onset (ago): day(s) (1) <Greyson Breen MD - Last Filed: 07/22/25 21:36> Timing: gradual onset <Greyson Breen MD - Last Filed: 07/22/25 21:36> Severity: moderate <Greyson Breen MD - Last Filed: 07/22/25 21:36> Description: room spinning <Greyson Breen MD - Last Filed: 07/22/25 21:36> History of similar symptoms: Yes <Greyson Breen MD - Last Filed: 07/22/25 21:36> Exacerbating factors: movement/ambulation <Greyson Breen MD - Last Filed: 07/22/25 21:36> Relieving factors: remaining still <Greyson Breen MD - Last Filed: 07/22/25 21:36> Associated symptoms: nausea <Greyson Breen MD - Last Filed: 07/22/25 21:36> Related Data Allergies/Adverse Reactions: Allergies Allergy/AdvReac Type Severity Reaction Status Date / Time No Known Allergies Allergy Verified 06/14/25 22:42 <Shivani Cadet APRN - Last Filed: 07/22/25 19:02> Review of Systems Review of Systems: All systems reviewed & are unremarkable except as noted in HPI and below <Greyson Breen MD - Last Filed: 07/22/25 21:36> Constitutional: Constitutional: Reports no additional constitutional complaints <Greyson Breen MD - Last Filed: 07/22/25 21:36> Eyes: Eyes: Reports no additional eye complaints <Greyson Breen MD - Last Filed: 07/22/25 21:36> ENT: Reports system reviewed and no additional complaints, except as documented <Greyson Breen MD - Last Filed: 07/22/25 21:36> Cardiovascular: Cardiovascular: Reports no additional cardiovascular complaints <Greyson Breen MD - Last Filed: 07/22/25 21:36> Respiratory: Respiratory: Reports no additional respiratory complaints <Greyson Breen MD - Last Filed: 07/22/25 21:36> Gastrointestinal: Gastrointestinal: Reports no additional gastrointestinal complaints <Greyson Breen MD - Last Filed: 07/22/25 21:36> Musculoskeletal: Musculoskeletal: Reports no additional musculoskeletal complaints <Greyson Breen MD - Last Filed: 07/22/25 21:36> Neurologic: Reports system reviewed and no additional complaints, except as documented <Greyson Breen MD - Last Filed: 07/22/25 21:36> Exam Narrative: GENERAL: Well-appearing, well-nourished, and in no acute distress. Patient lying still HEAD: Normocephalic, atraumatic. EYES: PERRLA and EOMI. ENT: Nares clear, no rhinorrhea or epistaxis. Mucous membranes moist. NECK: Supple. CHEST: Clear to auscultation. No respiratory distress. HEART: Regular rate and rhythm. No murmur heard. Normal peripheral pulses. ABDOMEN: Soft, nontender, nondistended, normal active bowel sounds. EXTREMITIES: Normal range of motion. No edema. SKIN: Warm, dry, no rash. NEURO: No focal deficits. Alert and oriented x3. PSYCH: Normal mood and affect. <Greyson Breen MD - Last Filed: 07/22/25 21:36> Course Course Emergency Course: Will hydrate, Reglan and meclizine the CT of the head develops. His <Greyson Breen MD - Last Filed: 07/22/25 21:36> Vital Signs Vital signs: Vital Signs Temperature 98.1 F 07/22/25 18:38 Pulse Rate 83 07/22/25 18:38 Respiratory Rate 18 07/22/25 18:38 Blood Pressure 133/81 07/22/25 18:38 Pulse Oximetry 99 07/22/25 18:38 Oxygen Delivery Room Air 07/22/25 18:38 Temperature 98.1 F 07/22/25 18:38 Pulse Rate 73 07/23/25 02:32 Respiratory Rate 16 07/23/25 02:32 Blood Pressure 133/73 07/23/25 02:32 Pulse Oximetry 99 07/23/25 02:32 Oxygen Delivery Room Air 07/22/25 18:38 <Shivani Cadet APRN - Last Filed: 07/22/25 19:02> Vital Signs Temperature 98.1 F 07/22/25 18:38 Pulse Rate 83 07/22/25 18:38 Respiratory Rate 18 07/22/25 18:38 Blood Pressure 133/81 07/22/25 18:38 Pulse Oximetry 99 07/22/25 18:38 Oxygen Delivery Room Air 07/22/25 18:38 Temperature 98.1 F 07/22/25 18:38 Pulse Rate 73 07/23/25 02:32 Respiratory Rate 16 07/23/25 02:32 Blood Pressure 133/73 07/23/25 02:32 Pulse Oximetry 99 07/23/25 02:32 Oxygen Delivery Room Air 07/22/25 18:38 <Greyson Breen MD - Last Filed: 07/22/25 21:36> Vital Signs Temperature 98.1 F 07/22/25 18:38 Pulse Rate 83 07/22/25 18:38 Respiratory Rate 18 07/22/25 18:38 Blood Pressure 133/81 07/22/25 18:38 Pulse Oximetry 99 07/22/25 18:38 Oxygen Delivery Room Air 07/22/25 18:38 Temperature 98.1 F 07/22/25 18:38 Pulse Rate 73 07/23/25 02:32 Respiratory Rate 16 07/23/25 02:32 Blood Pressure 133/73 07/23/25 02:32 Pulse Oximetry 99 07/23/25 02:32 Oxygen Delivery Room Air 07/22/25 18:38 <Dania Perez MD - Last Filed: 07/23/25 21:22> MDM - Dizziness MDM Narrative Medical decision making narrative: patient signed out to me pending CT scan. Briefly, this patient has history of BPPV, presents here with similar symptoms, She only has a vertigo when she moves her head, when she is sitting still or lying still she does not have vertigo, therefore overall I have lower concern for a central cause. Her meclizine was downstairs and she was unable to get it and became quite nauseous which was the only reason she called for EMS. Upon arrival here was given a dose of Reglan and meclizine, vital signs within acceptable limits. CT brain negative for acute abnormality. On my re-evaluation, she states she feels much better. I did offer admission for her if she is still unable to walk, she is very insistent on wanting to go home and she has more prescriptions for meclizine at home. I have let her know she can always return to the emergency room if she changes her mind. // I did see that her urinalysis resulted showing possible UTI. I did call the patient at 07/23, updated on these results, and let her know I have sent prescriptions for antibiotics to the pharmacy based on her last urine susceptibility. Patient agreeable to this plan. She states that she is still having some vertigo, despite the meclizine, I therefore will send a prescription for scopolamine patch to her pharmacy, have let her know that she should return to the emergency room for symptoms do not improve, patient agreeable to this plan but she would like to try to stick it out at home for now. She is at least no longer nauseous. <Dania Perez MD - Last Filed: 07/23/25 21:22> Lab Data Result diagrams: 07/22/25 20:05 07/22/25 20:05 <Shivani Cadet APRN - Last Filed: 07/22/25 19:02> Labs: Lab Results 07/22/25 07/22/25 Range/Units 20:05 22:27 WBC 3.5 L (4.5-10.0) K/mm3 RBC 4.36 (4.2-5.4) M/mm3 Hgb 13.2 (12.0-15.0) g/dL Hct 38.6 (37.0-47.0) % MCV 88.5 (80-100) fl MCH 30.3 (26-34) pg MCHC 34.2 (32-36) g/dl RDW 12.1 (11.5-14.5) % Plt Count 204 (150-375) k/mm3 MPV 10.5 H (7.4-10.4) fl Immature Gran % (Auto) 0.3 (0-0.5) % Neut % (Auto) 53.1 (45.5-73.1) % Lymph % (Auto) 34.8 (18.3-44.2) % [place] % (Auto) 10.6 H (2.6-8.5) % Eos % (Auto) 0.9 (0-4.4) % Baso % (Auto) 0.3 (0.2-1.2) % Lymph # (Auto) 1.21 (0.9-3.2) K/mm3 [place] # (Auto) 0.4 (0.1-0.6) K/mm3 Eos # (Auto) 0.0 (0-0.3) K/mm3 Baso # (Auto) 0.0 (0.0-0.1) K/mm3 Abs Immat Gran (auto) 0.01 (0.00-0.031) K/mm3 Absolute Neuts (auto) 1.9 (1.3-6.7) K/mm3 Absolute Nucleated RBC 0.000 (0.0-0.012) K/mm3 Nucleated RBC % 0.0 (0.0-0.2) % Sodium 139 (137-145) mmol/L Potassium 4.0 (3.4-5.0) mmol/L Chloride 106 (98-107) mmol/L Carbon Dioxide 27 (22-30) mmol/L Anion Gap 6 (4-12) mmol/L BUN 13 (7-17) mg/dL Creatinine 0.70 (0.7-1.0) mg/dL Estim Creat Clear Calc 70 ml/min Estimated GFR > 60 (59 - ) Glucose 92 (65-110) mg/dL Calcium 9.2 (8.4-10.2) mg/dL Total Bilirubin 1.1 (0.2-1.3) mg/dL AST 24 (14-36) U/L ALT 15 (6-35) U/L Alkaline Phosphatase 83 (38-126) U/L Total Protein 7.5 (6.3-8.2) g/dL Albumin 4.3 (3.5-5.1) g/dL Urine Color Yellow (Yellow) Urine Appearance Cloudy H (Clear) Urine pH 6.5 (5.0-9.0) Ur Specific [place] 1.019 (1.001-1.035) Urine Protein Negative (Negative) mg/dL Urine Glucose (UA) Negative (Negative) mg/dL Urine Ketones Negative (Negative) mg/dL Ur Blood (Man) Non-hemolyzed trace H (Negative) Urine Nitrate Positive H (Negative) Urine Bilirubin Negative (Negative) Urine Urobilinogen 1.0 (<2.0) mg/dL Leukocyte Esterase Rfl 2+ H (Negative) JOSE/UL Urine RBC 3-5 H (0-2) /hpf Urine WBC 21-50 H (0-3) /hpf Ur Squamous Epith Cells Few (Few) /hpf Urine Bacteria 4+ /hpf Urine Casts 0-2 <Shivani Cadet, FRIEND OF THE COURT - Last Filed: 07/22/25 19:02> Lab Results 07/22/25 07/22/25 Range/Units 20:05 22:27 WBC 3.5 L (4.5-10.0) K/mm3 RBC 4.36 (4.2-5.4) M/mm3 Hgb 13.2 (12.0-15.0) g/dL Hct 38.6 (37.0-47.0) % MCV 88.5 (80-100) fl MCH 30.3 (26-34) pg MCHC 34.2 (32-36) g/dl RDW 12.1 (11.5-14.5) % Plt Count 204 (150-375) k/mm3 MPV 10.5 H (7.4-10.4) fl Immature Gran % (Auto) 0.3 (0-0.5) % Neut % (Auto) 53.1 (45.5-73.1) % Lymph % (Auto) 34.8 (18.3-44.2) % [place] % (Auto) 10.6 H (2.6-8.5) % Eos % (Auto) 0.9 (0-4.4) % Baso % (Auto) 0.3 (0.2-1.2) % Lymph # (Auto) 1.21 (0.9-3.2) K/mm3 [place] # (Auto) 0.4 (0.1-0.6) K/mm3 Eos # (Auto) 0.0 (0-0.3) K/mm3 Baso # (Auto) 0.0 (0.0-0.1) K/mm3 Abs Immat Gran (auto) 0.01 (0.00-0.031) K/mm3 Absolute Neuts (auto) 1.9 (1.3-6.7) K/mm3 Absolute Nucleated RBC 0.000 (0.0-0.012) K/mm3 Nucleated RBC % 0.0 (0.0-0.2) % Sodium 139 (137-145) mmol/L Potassium 4.0 (3.4-5.0) mmol/L Chloride 106 (98-107) mmol/L Carbon Dioxide 27 (22-30) mmol/L Anion Gap 6 (4-12) mmol/L BUN 13 (7-17) mg/dL Creatinine 0.70 (0.7-1.0) mg/dL Estim Creat Clear Calc 70 ml/min Estimated GFR > 60 (59 - ) Glucose 92 (65-110) mg/dL Calcium 9.2 (8.4-10.2) mg/dL Total Bilirubin 1.1 (0.2-1.3) mg/dL AST 24 (14-36) U/L ALT 15 (6-35) U/L Alkaline Phosphatase 83 (38-126) U/L Total Protein 7.5 (6.3-8.2) g/dL Albumin 4.3 (3.5-5.1) g/dL Urine Color Yellow (Yellow) Urine Appearance Cloudy H (Clear) Urine pH 6.5 (5.0-9.0) Ur Specific [place] 1.019 (1.001-1.035) Urine Protein Negative (Negative) mg/dL Urine Glucose (UA) Negative (Negative) mg/dL Urine Ketones Negative (Negative) mg/dL Ur Blood (Man) Non-hemolyzed trace H (Negative) Urine Nitrate Positive H (Negative) Urine Bilirubin Negative (Negative) Urine Urobilinogen 1.0 (<2.0) mg/dL Leukocyte Esterase Rfl 2+ H (Negative) JOSE/UL Urine RBC 3-5 H (0-2) /hpf Urine WBC 21-50 H (0-3) /hpf Ur Squamous Epith Cells Few (Few) /hpf Urine Bacteria 4+ /hpf Urine Casts 0-2 <Greyson Breen MD - Last Filed: 07/22/25 21:36> Lab Results 07/22/25 07/22/25 Range/Units 20:05 22:27 WBC 3.5 L (4.5-10.0) K/mm3 RBC 4.36 (4.2-5.4) M/mm3 Hgb 13.2 (12.0-15.0) g/dL Hct 38.6 (37.0-47.0) % MCV 88.5 (80-100) fl MCH 30.3 (26-34) pg MCHC 34.2 (32-36) g/dl RDW 12.1 (11.5-14.5) % Plt Count 204 (150-375) k/mm3 MPV 10.5 H (7.4-10.4) fl Immature Gran % (Auto) 0.3 (0-0.5) % Neut % (Auto) 53.1 (45.5-73.1) % Lymph % (Auto) 34.8 (18.3-44.2) % [place] % (Auto) 10.6 H (2.6-8.5) % Eos % (Auto) 0.9 (0-4.4) % Baso % (Auto) 0.3 (0.2-1.2) % Lymph # (Auto) 1.21 (0.9-3.2) K/mm3 [place] # (Auto) 0.4 (0.1-0.6) K/mm3 Eos # (Auto) 0.0 (0-0.3) K/mm3 Baso # (Auto) 0.0 (0.0-0.1) K/mm3 Abs Immat Gran (auto) 0.01 (0.00-0.031) K/mm3 Absolute Neuts (auto) 1.9 (1.3-6.7) K/mm3 Absolute Nucleated RBC 0.000 (0.0-0.012) K/mm3 Nucleated RBC % 0.0 (0.0-0.2) % Sodium 139 (137-145) mmol/L Potassium 4.0 (3.4-5.0) mmol/L Chloride 106 (98-107) mmol/L Carbon Dioxide 27 (22-30) mmol/L Anion Gap 6 (4-12) mmol/L BUN 13 (7-17) mg/dL Creatinine 0.70 (0.7-1.0) mg/dL Estim Creat Clear Calc 70 ml/min Estimated GFR > 60 (59 - ) Glucose 92 (65-110) mg/dL Calcium 9.2 (8.4-10.2) mg/dL Total Bilirubin 1.1 (0.2-1.3) mg/dL AST 24 (14-36) U/L ALT 15 (6-35) U/L Alkaline Phosphatase 83 (38-126) U/L Total Protein 7.5 (6.3-8.2) g/dL Albumin 4.3 (3.5-5.1) g/dL Urine Color Yellow (Yellow) Urine Appearance Cloudy H (Clear) Urine pH 6.5 (5.0-9.0) Ur Specific [place] 1.019 (1.001-1.035) Urine Protein Negative (Negative) mg/dL Urine Glucose (UA) Negative (Negative) mg/dL Urine Ketones Negative (Negative) mg/dL Ur Blood (Man) Non-hemolyzed trace H (Negative) Urine Nitrate Positive H (Negative) Urine Bilirubin Negative (Negative) Urine Urobilinogen 1.0 (<2.0) mg/dL Leukocyte Esterase Rfl 2+ H (Negative) JOSE/UL Urine RBC 3-5 H (0-2) /hpf Urine WBC 21-50 H (0-3) /hpf Ur Squamous Epith Cells Few (Few) /hpf Urine Bacteria 4+ /hpf Urine Casts 0-2 <Dania Perez MD - Last Filed: 07/23/25 21:22> Discharge Plan Discharge Clinical Impression: Benign paroxysmal positional vertigo Qualifiers: Laterality: unspecified laterality Qualified Code(s): H81.10 - Benign paroxysmal vertigo, unspecified ear <Shivani Cadet APRN - Last Filed: 07/22/25 19:02> Patient Disposition: Home <Shivani Cadet APRN - Last Filed: 07/22/25 19:02> Condition: Stable <Shivani Cadet APRN - Last Filed: 07/22/25 19:02> Instructions: Benign Paroxysmal Positional Vertigo (ED) <Shivani Cadet APRN - Last Filed: 07/22/25 19:02> Additional Instructions: Please follow up with your doctor; you can always return for any further issues. <Shivani Cadet APRN - Last Filed: 07/22/25 19:02> Patient Language: Guamanian <Shivani Cadet APRN - Last Filed: 07/22/25 19:02> Prescriptions: New amoxicillin-pot clavulanate 875-125 mg tablet 1 tablet PO Q12H Qty: 14 0RF scopolamine base 1 mg over 3 days patch 3 day 1 patch transdermal Q3D PRN (Reason: motion sickness) Qty: 4 0RF No Action meclizine 25 mg tablet 25 mg PO TID PRN (Reason: diziness) Qty: 15 0RF diazepam [Valium] 2 mg tablet 2 mg PO HS PRN (Reason: dizziness or vertigo) Qty: 5 0RF scopolamine base 1 mg over 3 days patch 3 day 1 patch transdermal Q3D PRN (Reason: dizziness or vertigo) Qty: 4 0RF <Shivani Cadet, JOSEPH - Last Filed: 07/22/25 19:02> Follow-up/Referrals: UNKNOWN,DOCTOR [Non-Staff] <Shivani Cadet APRN - Last Filed: 07/22/25 19:02>
[2025-07-22 20:11] LABS: Hematocrit 38.6 % (37.0-47.0); Hemoglobin 13.2 g/dL (12.0-15.0); Immature Granulocyte Percent A 0.3 % (0-0.5); Lymphocytes Absolute Auto 1.21 K/mm3 (0.9-3.2); Mean Corpuscular HGB Conc 34.2 g/dl (32-36); Mean Corpuscular Hemoglobin 30.3 pg (26-34); Mean Corpuscular Volume 88.5 fl (80-100); Nucleated Red Blood Cells Absolute Auto 0.000 K/mm3 (0.0-0.012); Nucleated Red Blood Cells Perc 0.0 % (0.0-0.2); Platelet Count Result 204 k/mm3 (150-375); Red Blood Count 4.36 M/mm3 (4.2-5.4); White Blood Count 3.5 K/mm3 (4.5-10.0)
[2025-07-22 20:22] LABS: Alanine Aminotransferase 15 U/L (6-35); Albumin Level 4.3 g/dL (3.5-5.1); Alkaline Phosphatase 83 U/L (38-126); Anion Gap 6 mmol/L (4-12); Aspartate Amino Transferase 24 U/L (14-36); Bilirubin,Total 1.1 mg/dL (0.2-1.3); Blood Urea Nitrogen 13 mg/dL (7-17); Calcium 9.2 mg/dL (8.4-10.2); Carbon Dioxide 27 mmol/L (22-30); Chloride 106 mmol/L (98-107); Estimated CRCL calculation 70 ml/min; Estimated Glomerular Filt Rate > 60; Glucose 92 mg/dL (65-110); Potassium 4.0 mmol/L (3.4-5.0); Sodium 139 mmol/L (137-145); Total Protein 7.5 g/dL (6.3-8.2)
[2025-07-22 20:55] VITALS: BP 120/79; PULSE 75; RESP 16; O2SAT 100
[2025-07-22 21:09] VITALS: PULSE 78
--- NOTE | 2025-07-22 21:14 | ECG_ITS ---
Test Date: 2025-07-22 22:26:02 Measurements Intervals [place] Rate: 56 P: 47 IA: 164 QRS: 0 QRSD: 83 T: 51 QT: 430 QTc: 418 Interpretive Statements SINUS BRADYCARDIA OTHERWISE NORMAL ECG Compared to ECG 06/14/2025 23:37:43 Sinus rhythm no longer present Electronically Signed On 07-23-2025 08:07:20 CDT by Kartik Kaye M.D.
[2025-07-22] MEDS: METOCLOPRAMIDE HCL INJ 10 MG/2 ML VIAL 5 MG IV PUSH (21:40)
[2025-07-22] MEDS: MECLIZINE HCL 25 MG TABLET PO (21:40)
[2025-07-22 22:43] LABS: Add Urine Microscopic? YES; Appearance Urine Cloudy (Clear); Glucose Urine UA Negative (Negative); Leukocyte Esterase Ur 2+ LEU/UL (Negative); Nitrate Urine Positive (Negative); Non Pathogenic Casts 0-2; Specific Grav Ur 1.019 (1.001-1.035)
[2025-07-22 23:13] VITALS: BP 150/85; PULSE 76; RESP 12; O2SAT 97
--- NOTE | 2025-07-22 23:14 | PC.NURSE ---
Received report from LIBBY Barrow for cont. of care. Pt AOx4 lying on stretcher respirations even and unlabored. Pt on cont. cardiac and oxygen monitoring, states she is still feeling dizzy.
[2025-07-23 02:32] VITALS: BP 133/73; PULSE 73; RESP 16; O2SAT 99
== END 2025-07-23 02:32 | disposition home or self-care (01) ==
PROVIDERS: Registered Nurse; Emergency Provider Emergency Medicine
DX: H81.10 Benign paroxysmal vertigo, unspecified ear (principal); R82.998 Other abnormal findings in urine
CPT/HCPCS: 36415; 70450; 80053; 81001; 85025; 87077; 87086; 87186; 93005; 96374; 99284; A9270; J2765